=== PATIENT | female | born 1990 | race Caucasian/White ===

== ENCOUNTER 2018-09-03 07:10 | Inpatient (IN) | payer OTHER ==
[~2018-09-03] VITALS: Ht 152.4 cm; Wt 90.7 kg
[2018-09-03] MEDS ORDERED: PRENATAL FORMU1 EAC1 PO (08:38)
== END 2018-09-05 12:37 | disposition home or self-care (01) | DRG 775 ==
LOC: LDR 07:10 → OB/GYN 07:10
PROC: 10E0XZZ Delivery of Products of Conception, External Approach (ICD-10-PCS; principal; 2018-09-03)
PROC: 4A1HXCZ Monitoring of Products of Conception, Cardiac Rate, External Approach (ICD-10-PCS; 2018-09-03)
DX: O80 Encounter for full-term uncomplicated delivery (principal); Z3A.38 38 weeks gestation of pregnancy; Z37.0 Single live birth